=== PATIENT | male | born 1975 | race Caucasian/White ===

== ENCOUNTER 2018-07-05 16:12 | Emergency (ER) | payer OTHER ==
--- NOTE | 2018-07-05 18:03 | EDPHY ---
H & P Time Seen by Provider: 07/05/18 17:55 HPI/ROS: CHIEF COMPLAINT: Left foot pain HISTORY OF PRESENT ILLNESS: 42-year-old immunocompetent male, no history of gout, complaining of atraumatic left 4th and 5th metatarsal pain for the past 2 days. Reproducible pain with weight-bearing and range of motion. No discoloration. No trauma. No fall. PHYSICAL EXAM (Prior to examination, patient consented to physical exam, hands were washed and my usual and customary physical exam procedures followed) 1) GENERAL: Well-developed, well-nourished, alert and oriented. Appears to be in no acute distress. 2) HEAD: Normocephalic 3) HEENT: Pupils equal, round, reactive to light bilaterally. 4) LUNGS: Breathing comfortably. 5) MUSCULOSKELETAL: Tender to palpation left mid 4th and 5th metatarsal. There are no overlying skin changes. Negative Homans no palpable cord. No calf pain. No ankle pain. No calcaneus pain. No 1st metatarsal pain or MTP pain. 6) SKIN: Intact. No erythema. 7) VASCULAR: DP,PT pulses and cap refill present and brisk DIFFERENTIAL DIAGNOSIS: in no particular order including but not limited to fracture, sprain, compartment syndrome Xray of the left foot interpreted by myself: no definitive acute osseous abnormality Procedure: Crutches indications for crutch use discussed with patient. Patient fitted for crutches by ER staff. Observed ambulating with crutches. I think the patient has the capacity to safely use crutches. Usual and customary crutch walking precautions provided Procedure: Splint A walt boot splint was applied by ER build technician. After application of the splint I returned and re-examined the patient. The splint was adequately immobilizing the joint and distal to the splint the patient's circulation and sensation were intact. Patient shows no signs of compartment syndrome. Was given orthopedic precautions. Smoking Status: Never smoked Constitutional: Initial Vital Signs Temperature (C) 36.7 C 07/05/18 16:22 Heart Rate 75 07/05/18 16:22 Respiratory Rate 16 07/05/18 16:22 Blood Pressure 113/90 H 03/09/19 16:22 O2 Sat (%) 97 07/05/18 16:22 O2 Delivery Mode Room Air Allergies/Adverse Reactions: No Known Allergies Allergy (Unverified 07/05/18 16:22) Home Medications: Medication Instructions Recorded NK [No Known Home Meds] 07/05/18 MDM/Departure - MDM Imaging Results: Imaging Impressions Foot X-Ray 07/05/18 18:02 Impression: Negative for fracture. Images reviewed myself ED Course/Re-evaluation: Patient was re-evaluated with serial exams, most recently at 6:15 p.m.. Discussed his x-rays with him showing no definitive fracture. Discussed with patient the limitations of x-ray, informed that soft tissue injury, occult fracture not ruled out. Doubt septic arthritis. Doubt gouty arthritis. This time I think the patient can be discharged I have recommended close follow-up with Podiatry. Placed in a splint, crutches, recommended elevation Patient feels comfortable being discharged. All questions and concerns addressed by myself. Patient given my usual and customary discharge precautions and instructions regarding their clinical impression.Care of patient under supervision of secondary supervising physician Dr Roxanne Huynh. Differential Diagnosis: In no particular order including but not limited to acute gouty arthritis, septic arthritis, sprain, strain, dislocation, occult fracture, soft tissue injury - Depart Disposition: Home, Routine, Self-Care Clinical Impression: Left foot pain Condition: Good Instructions: Foot Sprain (ED) Additional Instructions: Return to the ER immediately if you experience discoloration, have worsening pain, numbness, tingling, or any other symptoms that concern you. If you received x-rays in the emergency department today, be advised, that ligamentous , tendon, muscular, and other non-bony injury cannot be fully ruled out. Try to keep your affected extremity elevated above the level of your chest, and keep cold packs on the affected area, for the next 48 hours. Adult Pain & Fever Control: We recommend Acetaminophen (Tylenol) and Ibuprofen (Motrin,Advil) for pain and fever control. When fever is high or pain severe, both drugs can be used at the same time, but at different intervals. Please note the time differences. Your dose is: Acetaminophen 650mg every 4 to 6 hours Ibuprofen 600mg every 6 hours with food OR Note: do not take Acetaminophen with Hydrocodone (Vicodin, Lortab) or Oycodone (Percocet). These medications also contain Acetaminophen. No more than 3000mg of Acetaminophen should be taken in 24 hours (for an adult). Referrals: Shobha Joshi [Doctor of Podiatric Medicine] - 2-3 days, call for appt.
[2018-07-05 18:43] VITALS: BP 147/103
== END 2018-07-05 18:42 | disposition home or self-care (01) ==
DX: M79.672 Pain in left foot (principal)
CPT/HCPCS: L4386